=== PATIENT | female | born 1970 | race Two or more races ===

== ENCOUNTER 2020-07-22 10:40 | Outpatient (REF) | payer MEDICAID, SELFPAY | END 2020-07-22 10:41 | disposition home or self-care (01) | LOC: HO.SCI 10:40 | PROVIDERS: Visit Provider Nurse Practitioner | DX: Z13.89 Encounter for screening for other disorder (principal) ==

== ENCOUNTER 2023-06-17 10:31 | Outpatient (AMB) | payer MEDICAID, SELFPAY ==
--- NOTE | 2023-06-17 07:54 | MHC.OFFVIS ---
Intake Visit Reasons: Current Smoker HPI HPI Current Smoker: Details: Initial visit for this 53yo smoker with a 20PYH. Patient has been smoking since age 20 for 34 years at 1/2-3/4ppd. Currently down to 1/4ppd. . Denies marijuana use. Denies second hand smoke exposure. Denies exposure to chemicals or substances like asbestos. . Denies known family history of lung cancer. Denies personal history of cancers. Denies chest CT in last year. . Denies recent travel outside the [place]. Denies recent respiratory illness or recent hospitalization for respiratory issues. Denies testing positive for COVID. Denies receiving COVID Vaccine. . Denies fever, chills, new/worsening cough, hemoptysis, hoarseness or dysphagia. Denies significant chest pain, significant dyspnea or unintentional weight loss. Patient Lung Cancer Screening Questionnaire reviewed with patient by provider. . Shared Decision Making Completed. Patient meets criteria. Discussed in detail with patient, the risk vs benefit of LDCT screening. Patient consents to proceed with scan. Discussed smoking cessation. [facility] Medical History (Updated 06/17/23 @ 10:51 by Anuja Castillo PA-C) Asthma Hypertension Seasonal allergies Nicotine dependence, cigarettes, uncomplicated Surgical History (Updated 06/17/23 @ 10:52 by Anuja Castillo PA-C) History of appendectomy History of Social History (Updated 06/17/23 @ 10:52 by Anuja Castillo PA-C) Patient Tobacco Use Status: Current everyday Tobacco user Cigarettes Per Day: 4 Years Smoked: (onset 20yo, 1/2-3/4ppd x 33yrs, now 1/4ppd - 20pyh) Assessment & Plan Assessment & Plan (1) Nicotine dependence, cigarettes, uncomplicated: Comment: (current smoker - onset 20yo - x 33yrs, 1/2-3/4ppd, now 1/4ppd - 20pyh ) Code(s): F17.210 - Nicotine dependence, cigarettes, uncomplicated Category: Medical Plan: - SDM visit completed today in office. - Patient meets criteria for LDCT for lung cancer screening purposes and is asymptomatic. - Smoking cessation counseling offered. Patients can always call [phone]. - Will arrange for a LDCT scan of the chest for screening purposes at [facility]. - Risks, benefits, and alternatives were discussed in detail and the patient agrees to proceed. - Risks discussed include but are not limited to: radiation exposure, anxiety during testing and while awaiting results, false negatives, false positives and possibility of additional intervention such as further imaging or surgical procedures for benign disease. - Benefits are obviously detection of lung cancer at an early stage which can lead to improved outcomes. - Discussed the importance of screening program compliance with adherence to yearly LDCT scan as scheduled - or sooner interval scans for personalized screening regimen. - Discussed follow up plan. Our office will send a letter discussing results and if needed set up phone call and office visit based on CT findings. - Patient educated on results categorization and the management decisions for suspicious findings potentially found on the screening LDCT scan. Any patient with a Lung RADS score of 3 or 4 will be reviewed by a multidisciplinary team at [facility] to form a plan of action in regards to scan findings. - If further work up is warranted for a suspicious lung finding this will be followed by the Lung Cancer Screening program in conjunction with the Thoracic Surgery Department at [facility]. - A copy of the office note and LDCT will be sent to the patient's PCP - as well as documentation on any associated further plans of care. - Incidental findings on LDCT are the PCP's responsibility. These findings are indicated with an S finding on the LDCT Assessment. A note discussing the findings will be sent to the PCP who is then responsible for further management. - All questions answered.? Coding Level of Care Code Lung Cancer Screening G0296 Diagnoses Nicotine dependence, cigarettes, uncomplicated F17.210
== END 2023-06-17 10:58 | disposition home or self-care (01) ==
PROVIDERS: PCP Student in an Organized Health Care Education/Training Program; Referring Provider Student in an Organized Health Care Education/Training Program; Visit Provider Physician Assistant Medical
DX: F17.210 Nicotine dependence, cigarettes, uncomplicated (principal)
CPT/HCPCS: G0296

== ENCOUNTER 2023-06-17 10:50 | Outpatient (REF) | payer MEDICAID, SELFPAY ==
--- NOTE | ~2023-06-17 | CT_ITS ---
EXAMINATION: CT CHEST SCREENING CLINICAL INFORMATION: Nicotine dependence, cigarettes, uncomplicated. The patient is a current smoker with a 34 pack-year history of smoking. COMPARISON: None available. TECHNIQUE: Multidetector volumetric CT imaging of the chest is performed on a Siemens SOMATOM Definition scanner without contrast using low dose technique. Additional 2D coronal and sagittal reformatted images and axial 3D maximum intensity projection (MIP) images are generated on the CT workstation. This CT examination was performed using dose optimization techniques as appropriate, variously including the following: *Automated exposure control *Adjustment of mA and/or kV according to patient size (this includes techniques or standardized protocols for targeted exams where dose is matched to indication/reason for exam; i.e. extremities or head) *Use of iterative reconstruction technique DLP: 61 mGy-cm FINDINGS: Pulmonary nodules: There is a 3 mm subpleural left upper lobe nodule (5:115). There is a 2 mm subpleural right upper lobe nodule laterally (5:202). Punctate calcified granuloma in the right lateral costophrenic angle. LUNGS: There are mild emphysematous changes along with bronchial thickening. No consolidations. MEDIASTINUM: The mediastinum is normal. CORONARY ARTERY CALCIFICATION: None visualized on this study. PLEURA: There is no pleural effusion. No pleural mass or thickening. AXILLA: No lymphadenopathy. UPPER ABDOMEN: Unremarkable OSSEOUS STRUCTURES: Unremarkable. CT/CT lung screening IMPRESSION: A few benign-appearing pulmonary nodules without evidence of malignancy. ASSESSMENT: Lung-RADS category 2: Benign RECOMMENDATION: Routine annual low-dose CT screening in 12 months.
== END 2023-06-17 10:51 | disposition home or self-care (01) ==
LOC: HO.CT 10:50
PROVIDERS: PCP Student in an Organized Health Care Education/Training Program; Visit Provider Physician Assistant Medical
DX: Z12.2 Encounter for screening for malignant neoplasm of respiratory organs (principal); F17.210 Nicotine dependence, cigarettes, uncomplicated
CPT/HCPCS: 71271; G0296

== ENCOUNTER 2023-07-19 15:55 | Outpatient (REF) | payer MEDICAID, SELFPAY ==
[2023-07-29 08:48] LABS: HPV mRNA E6/E7 rflx Not Detected (Not Detected)
[2023-07-30 10:54] LABS: C. trachomatis RNA TMA NOT DETECTED (NOT DETECTED); N. gonorrhoeae RNA TMA NOT DETECTED (NOT DETECTED)
[2023-07-30 12:28] LABS: Trichomonas (NAAT) NOT DETECTED (NOT DETECTED)
== END 2023-07-19 15:56 | disposition home or self-care (01) ==
LOC: HO.HHCLNP 15:55
PROVIDERS: Visit Provider Advanced Practice Midwife
DX: Z12.4 Encounter for screening for malignant neoplasm of cervix (principal); Z11.3 Encounter for screening for infections with a predominantly sexual mode of transmission
CPT/HCPCS: 87491; 87591; 87624; 87661; 88142

== ENCOUNTER 2023-12-07 10:42 | Outpatient (REF) | payer MEDICAID, SELFPAY ==
--- NOTE | ~2023-12-07 | XR_ITS ---
EXAMINATION: XR KNEE, RIGHT CLINICAL INFORMATION: Right knee pain COMPARISON: None available. TECHNIQUE: AP and lateral views of the right knee. FINDINGS: No acute fracture or dislocation seen. Fibular head is intact. There is minimal lateral chondrocalcinosis. No significant joint effusion seen. Superior patellar spurring noted. XR/XR knee RT 2V IMPRESSION: No evidence for acute process. Degenerative changes. Electronically signed by: Naga Hurley MD 12/07/2023 04:20 PM EDT
== END 2023-12-07 10:43 | disposition home or self-care (01) ==
LOC: HO.HHCX 10:42
PROVIDERS: Visit Provider Student in an Organized Health Care Education/Training Program
DX: M25.561 Pain in right knee (principal); G89.29 Other chronic pain
CPT/HCPCS: 73560

== ENCOUNTER 2023-12-07 11:28 | Outpatient (REF) | payer MEDICAID, SELFPAY ==
[2023-12-07 13:46] LABS: Estimated Average Glucose 111 mg/dL; Hemoglobin A1C 126.0457 umol/L; Hemoglobin A1c % 5.5 % (<6.0); Total Hemoglobin (HGBA1C) 3470.1805 umol/L
[2023-12-07 13:50] LABS: Alanine Aminotransferase 21 U/L (0-31); Alkaline Phosphatase 77 U/L (39-117); Aspartate Amino Transferase 23 U/L (5-31); Bilirubin Direct 0.1 mg/dL (0.0-0.5); Bilirubin Total 0.3 mg/dL (0.0-1.0); Cholesterol 199 mg/dL (<200); Total Protein 6.9 g/dL (6.5-8.0)
[2023-12-07 14:06] LABS: Thyroid Stimulating Hormone 1.91 uIU/mL (0.32-4.0)
== END 2023-12-07 11:29 | disposition home or self-care (01) ==
LOC: HO.HHCL 11:28
PROVIDERS: Visit Provider Counselor
DX: Z13.89 Encounter for screening for other disorder (principal)
CPT/HCPCS: 36415; 80076; 82465; 83036; 84443

== ENCOUNTER 2024-05-21 08:33 | Outpatient (AMB) | payer MEDICAID, SELFPAY ==
--- NOTE | 2024-05-21 08:35 | A.OFFVIS_ITS ---
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 International Student Counselor Required: Yes International Student Counselor Services: International Student Counselor Present International Student Counselor Name: Suha [phone] Accompanied by: Self / Same As Patient Allergies No Known Allergies Allergy (Verified 05/21/24 08:39) Medication List - Last Reconciled 05/21/24 by Terrell Cherry MD budesonide-formoterol 160-4.5 mcg/actuation (Symbicort) 1 inh inhalation BID lisinopril-hydrochlorothiazide 10-12.5 mg 1 tab PO DAILY quetiapine 50 mg PO BEDTIME sertraline 200 mg PO DAILY HPI Comments Details: This is a cardiology consultation regarding an abnormal EKG. Patient herself does not have any clear-cut cardiac history including any coronary disease or myocardial infarction or cardiomyopathy or anything along those lines. She states that she gets random chest pains in no specific patterns. Can get with and without exertion. She gets short of breath with activity and describes nonspecific fatigue/tiredness. She has hypertension medications. Chronic smok er. History of remote drug use including cocaine use. Recent EKG was thought to be abnormal and hence she has been referred here for further evaluation. [facility] Medical History (Updated 05/21/24 @ 08:54 by Terrell Cherry MD) Asthma Hypertension Seasonal allergies Nicotine dependence, cigarettes, uncomplicated Surgical History History of appendectomy History of Family History (Updated 05/21/24 @ 08:42 by Lucy Montes CMA) Mother DM2 (diabetes mellitus, type 2) HTN (hypertension) Social History (Updated 05/21/24 @ 08:42 by Lucy Montes CMA) Alcohol intake: never Patient Tobacco Use Status: Current everyday Tobacco user Cigarettes Per Day: 4 Years Smoked: (onset 20yo, 1/2-3/4ppd x 33yrs, now 1/4ppd - 20pyh) Review of Systems Const Denies chills, Denies daytime sleepiness, Denies fatigue, Denies fever(s), Denies poor appetite, Denies snoring, Denies stops breathing during sleep, Denies weakness, Denies weight gain and Denies weight loss Eyes Denies loss of vision ENT Denies dizziness and Denies hearing loss Card Reports chest pain, Reports irregular heart rhythm, Denies claudication, Denies leg edema, Denies lightheadedness, Denies palpitations, Reports dyspnea on exertion and Denies orthopnea Resp Denies cough, Denies excessive phlegm production, Reports dyspnea on exertion, Denies snoring and Denies wheezing GI Denies abdominal pain, Denies hematochezia, Denies change in bowel habits, Denies nausea and Denies vomiting Denies urinary frequency and Denies dysuria Musc Denies arthralgias, Denies muscle weakness, Denies numbness and Denies other Skin/Breast Denies nail changes and Denies rash Neuro Denies Abnormal speech present, Denies dizziness, Denies loss of vision, Denies memory loss, Denies numbness and Denies weakness Psych Denies depression and Denies memory loss Endo Denies fatigue and Denies palpitations Tyler/Lymph Denies easy bruising Aller/Immun Denies wheezing Physical Exam Vital Signs: Last Vital Signs Pulse 62 05/21/24 08:38 BP 130/90 H 05/21/24 08:38 BMI result Body Mass Index 32.5 Const General: comfortable and no acute distress Orientation/consciousness: patient oriented x3 HEENT Other: Unremarkable Head: Yes normal to inspection Neck Neck: Yes normal visual inspection Chest Chest palpation & inspection: normal inspection of the chest Resp Auscultation: clear to auscultation bilaterally Cardio Palpation: normal PMI Heart sounds: S1 normal heart sound present, S2 normal heart sound present, no gallops, no murmurs and no rubs GI Palpation (GI): Soft to palpation Back/Spine/Pelvis Other: unremarkable Skin General skin exam: no rashes or lesions noted Neuro General: patient oriented x3 Speech: No Abnormal speech present Extrem General: Yes normal to inspection Psych Mental Status: mental status grossly normal Office Procedures EKG Details: EKG with underlying sinus rhythm at 62/Min; nonspecific ST-T changes; [place] [id number], Complete Assessment & Plan Assessment & Plan (1) Precordial chest pain: Code(s): R07.2 - Precordial pain Category: Medical (2) Abnormal EKG: Code(s): R94.31 - Abnormal electrocardiogram [ECG] [EKG] Category: Medical (3) Essential hypertension: Code(s): I10 - Essential (primary) hypertension Category: Medical (4) Smoker: Code(s): F17.200 - Nicotine dependence, unspecified, uncomplicated Category: Social Hx Plan EKG shows nonspecific ST-T changes. Atypical sounding chest pain. However, with risk factors. We will get an echocardiogram/stress test for further evaluation. Follow-up after the above. Discussed with patient regarding this plan and she is willing to proceed. She will call us with any ongoing concerns. Orders: Orders CA echo transthoracic complete Today R07.2 - Precordial pain CA echo stress exercise Today R07.2 - Precordial pain Coding Level of Care Code New Pt Level 4 (54541) Complex EM visit Add On G2211 Diagnoses Precordial chest pain R07.2 Abnormal EKG R94.31 Essential hypertension I10 Smoker F17.200 CPT Codes EKG - CPT: 33992-[id number], Complete ([id number])
[2024-05-21 08:38] VITALS: BP 130/90; PULSE 62; BMI 32.5
--- OUTSIDE RECORDS SUMMARY | 2024-05-21 09:04 | XMS_ITS | Encounter Summary ---
Author Organization [employer] Address [address] [facility] [place] [address] Care Team Providers Care Labour Market Economist Name Role Phone Liliana Narayanan MD Primary Care Pro vider Isac Gaytan Unavailable Unavailable Reason for Visit * Reason Onset Date Comments Appointment Request 06/16/2023 Encounter Details Date Type Department Care Team (Late st Contact Info) Description 06/16/2023 Telephone [facility] [address], [place] [phone] Liliana Narayanan MD [address] [place], [place] [phone] Appointment Request Social History Tobacco Use Types Packs/Day Years Used Date Smoking Tobacco: Some Days Cigarettes Smokeless Tobacco: Never Comments:Started smoking 16 y of age until now ,stopped for 2 years but again smoking. Smokes aprox 4 cig a day states used to smoke 60 cig a day which did for 10 years .PQT sita a year 36 Alcohol Use Standard Drinks/Week Comments Not Currently 0 (1 standard drink = 0.6 oz pure alcohol) h xof ETOH abuse not currently -stopped 20 y ago Depression Answer Date Recorded Patient Health Questionnaire-9 Score 27 04/26/2023 Patient Health Questionnaire-9 Score 27 04/26/2023 Last PHQ-9: Questionnaire Data Not on file 0 04/26/2023 Housing Stability Answer Date Recorded What is your housing situation today? I do not have housing (Staying with others, in a hotel, in a senior living, living outside on the street, on a beach, in a car, or in a park 11/21/[address] you li ve. Do you have problems with any of the following? None of the above 11/21/2022 Food Insecurity Answer Date Recorded Within the past 12 months, y ou worried that your food would run out before you got money to buy more: Often true 12/06/2022 Within the past 12 months,th e food you bought just didn't last and you didn't have enough money to get more: Often true Transportation Answer Date Recorded In the past 12 months, has l ack of transportation kept you from medical appts, meetings, work or from getting things needed for daily living? Yes, it has kept me from medical appointments or getting medications. 11/21/2022 Utilities Answer Date Recorded In the past 12 months, has t he electric, gas, oil or water company threatened to shut off services in your home? Yes 11/21/2022 Depression Answer Date Recorded Patient Health Questionnaire-2 Score 6 04/26/2023 Comments Unknown Sex and Gender Information Value Date Recorded Sex Assigned at Female 12/14/2021 10:38 AM EDT Legal Sex Female 10:38 AM EDT Gender Identity Female 12/14/2021 10:38 AM EDT Sexual Orientation Straight 12/14/2021 10 :38 AM EDT documented as of this encounter Miscellaneous Notes * Telephone Encounter - Michel Stauffer - 06/16/2023 8:30 AM EDT Tc from patient calling to reschedule PAP appt from 06/08 documented in this encounter Plan of Treatment Upcoming Encounters Date Type Department Care Team (Late st Contact Info) Description 05/25/2024 11:15 AM EDT Office Visit [facility] [address] [place] [phone] Liliana Narayanan MD [address] [place] [phone] 07/19/2024 1:45 PM EDT Office Visit [facility] [address] [place] [phone] Judith Ingram CNM [address] [place] [phone] documented as of this encounter Visit Diagnoses Not on filedocumented in this encounter Additional Health Concerns Assessment Noted Time PHQ-9 Depression Total Score: 27 024 10:20 AM EDT documented as of this encounter Care Teams Labour Market Economist Relationship Specialty Start Date End Date Liliana Narayanan MD [address] [place], [place] [phone] PCP - General Internal Medicine 11/04/22 Isac Gaytan FNP [address] [place] [address] Nurse Practitioner Family Medicine 01/05/23 documented as of this encounter
--- OUTSIDE RECORDS SUMMARY | 2024-05-21 09:04 | XMS_ITS | Encounter Summary ---
Author Organization [employer] Address [address] [facility] [address] [place] [address] Care Team Providers Care Sales Lead Generator Name Role Phone Liliana Narayanan MD Primary Care Pro vider Isac Gaytan Unavailable Unavailable Reason for Visit * Reason Onset Date Comments chart prep 05/17/2024 Encounter Details Date Type Department Care Team (Late st Contact Info) Description 05/17/2024 Telephone [facility] [address] [place], [place] [phone] Liliana Narayanan MD [address] [place], [place] [phone] chart prep Social History Tobacco Use Types Packs/Day Years [...] What is your housing situation today? I have meir morataya 06/24/[address] you li ve. Do you have problems with any of the following? None of the above 06/24/2023 Food Insecurity Answer Date Recorded Within the past 12 months, y ou worried that your food would run out before you got money to buy more: Often true 05/14/2024 Within the past 12 months,th e food you bought just didn't last and you didn't have enough money to get more: Often true Transportation Answer Date Recorded In the past 12 months, has l ack of transportation kept you from medical appts, meetings, work or from getting things needed for daily living? Yes, it has kept me from medical appointments or getting medications. 05/14/2024 Utilities Answer Date Recorded In the past 12 months, has t he [employer], gas, oil or water company threatened to shut off services in your home? No 06/24/2023 Depression Answer Date Recorded Patient Health Questionnaire-2 Score 6 04/26/2023 Internet Access Answer Date Recorded Internet Access Q1 Yes 05/14/2024 Internet Access Q2 Not on file 05/14/2024 Comments Unknown Sex and Gender Information Value Date Recorded Sex Assigned at Female 12/14/2021 10:38 AM EDT Legal Sex Female 10:38 AM EDT Gender Identity Female 12/14/2021 10:38 AM EDT Sexual Orientation Straight 12/14/2021 10 :38 AM EDT documented as of this encounter Miscellaneous Notes * Telephone Encounter - Negrita Diggs MA - 05/17/2024 3:42 PM EDT Chart Prep Labs: done Images: done Vaccines due: Covid Due, Hep B Due, Flu Due, and Shingles in pharmacy Due Referrals: Completed Screenings: Colonoscopy and Mammogram Overdue care gaps: Sbirt, PQ9, GAD7, Disability , and Oral Health documented in this encounter Plan of Treatment Upcoming Encounters Date Type Department Care Team (Late st Contact Info) Description 05/25/2024 11:15 AM EDT Office Visit [facility] [address] [place] [phone] Liliana Narayanan MD [address] [place] [phone] 07/19/2024 1:45 PM EDT Office Visit [facility] [address] [place] [address] Judith Ingram CNM [address] [place], [place] [phone] documented as of this encounter Visit Diagnoses Not on filedocumented in this encounter Additional Health Concerns Assessment Noted Time PHQ-9 Depression Total Score: 27 024 10:20 AM EDT documented as of this encounter Care Teams Sales Lead Generator Relationship Specialty Start Date End Date Liliana Narayanan MD [address] [place] [address] PCP - General Internal Medicine 11/04/22 Isac Gaytan FNP [address] [place] [phone] Nurse Practitioner Family Medicine 01/05/23 documented as of this encounter
--- OUTSIDE RECORDS SUMMARY | 2024-05-21 09:04 | XMS_ITS | Clinical Summary ---
Author Organization [employer] Address [address] [facility] 7t [place] [address] Care Team Providers Care Director Digital Analytics Name Role Phone Liliana Narayanan MD Primary Care Pro vider Isac Gaytan Unavailable Unavailable Allergies Active Allergy Reactions Criticality Noted Date Comments Gramineae Pollens Runny nose 09/10/2022 Medications * This document contains information received from the source organization and may not represent a complete record from that organization. cetirizine (ZyrTEC) 10 MG chewable tablet Chew 1 tablet at bed time. 2 Active cyclobenzaprine (Flexeril) 5 MG tablet take 1 tablet by oral route 2 times daily as needed for muscle pain or spasm 2 Active albuterol (2.5 MG/3ML) 0.083% nebulizer solutionIndicat ions:Moderate persistent asthma, unspecified whether complicated Take 3 mL by nebulization every 8 (eight) hours if needed for wheezing. 75 mL 3 Active budesonide-form oterol (Symbicort) 80-4.5 MCG/ACT inhalerIndicati ons:Moderate persistent asthma, unspecified whether complicated Inhale 2 puffs in the morning and at bedtime. Rinse mouth with water after use to reduce aftertaste and incidence of candidiasis. Do not swallow. 1 each 5 4 Active sertraline (Zoloft) 100 MG tabletIndicatio ns:Severe recurrent major depression with psychotic features (CMS/HCC) Take 1 tablet (100 mg) by mouth in the morning. 90 tablet 4 Active albuterol 108 (90 Base) MCG/ACT inhaler Inhale 2 puffs every 4 (four) hours. 18 g 3 4 Active Diclofenac Sodium 1 % gel Apply 1 Application topically if needed each day (pain knee). 50 g 4 Active nicotine (Nicoderm CQ) 7 MG/24HR patch Place 1 patch on the skin 1 (one) time each day at the same time. 42 patch 4 Active nicotine polacrilex (Nicotine Mini) 2 MG lozenge Dissolve 1 lozenge (2 mg) in the mouth if needed for smoking cessation. 100 lozenge 4 Active QUEtiapine XR (SEROquel XR) 300 MG 24 hr tablet TAKE 1 TABLET BY MOUTH EVERYDAY AT BEDTIME 30 tablet 4 Active Gas Relief Extra Strength 125 MG chewable tablet CHEW 1 TABLET (125 MG) EVERY 6 (SIX) HOURS IF NEEDED FOR FLATULENCE FOR UP TO 10 DAYS. 30 tablet 4 Active lisinopril-hydr oCHLOROthiazide 10-12.5 MG tablet TAKE 1 TABLET BY MOUTH EVERY DAY 90 tablet 5 Active Active Problems Problem Noted Date Diagnosed Date Chronic pain of right knee 06/24/2023 Bloated abdomen 06/24/2023 Abnormal EKG 06/24/2023 Severe anxiety 04/26/2023 Obesity 04/26/2023 Tobacco use 04/26/2023 Hypertension 09/10/2022 Assessment & Plan (09/10/2022 10:17 AM EDT): Patient not taking medication as prescribed. We discussed that she needs to take her medication as prescribed. That her medication is more than likely not impacting her menstrual cycle. She understood. Patient reports having BP cuff at home. She is to log her BP twice a day and return in two weeks for a bp check. BP 132/86 before leaving. Routine adult health maintenance 06/29/2022 Assessment & Plan (09/10/2022 12:46 PM EDT): Due to time constraints I was unable to complete her TP visit. I will continue the visit at her HTN f/up in two week. PHQ: 4 Substance use: Cigarettes = 3 a week. Denies etoh. Marijuana = none now. Lipids: labs ordered Mammo: reports 6 years ago. Colonoscopy: referral to GI sent. Says she was sent by previous PCP but never went. Eye exam: referral sent Dental home: Severe recurrent major depression with psychotic features 01/26/2022 Assessment & Plan (04/26/2023 1:03 PM EDT): PROGRESS NOTE: ID: Sidney is a 52 y.o. White straight-identified cis-female (pronouns she/her/hers) with previous documented hx of Depression, services including OP Psychotherapy and psychopharmacology; who presents for Anxiety, Depression, and Hallucinations. During IBH Consult Sidney presenting with depressed mood, loss of interests/pleasure , changes in sleep difficulty falling asleep and difficulty staying asleep , change in appetite or weight reduce appetite, overeating, and ptn reported her appetite varies per day, psychomotor agitation, psychomotor retardation, trouble concentrating, fatigue/loss of energy, worthlessness , passive suicidal ideation w/o plan, hallucinations, excessive worry/anxiety, difficulty controlling worry, restless/keyed up/On edge, easily fatigued, difficulty concentrating/Mind going blank , irritability, muscle tension, and sleep disturbance difficulty falling asleep, difficulty staying asleep , and restless, unsatisfying sleep, and patient reported using cocaine on social occasions, denies cravings, denies dependence at this time; for a period of 18+ mo, for all symptoms in the context of ptn reported was living closed in her daughter baseman for 2 years without going outside, stress relationship with daughter, lack of support, and isolation. PLAN: New/Additional Services needed Off-site services for ( Psychiatrist) Continue with current services (defined as services in the past 12 months) therapist at [facility] Behavioral Health Integration Plan External OP psychiatry Referral Patient Self Plan Patient to utilize skills provided in intervention , [facility], Comply with medication soloft 100mg and seroquel 100mg , Patient to reach out to [facility] as needed, and Patient to follow-up with external team. Assessment & Plan (01/13/2023 11:11 AM EST): with history of mutliple traumas, beginning in childhood. Presented with auditory and visual hallucinations, self-harm and suicidal ideation. Hx cutting. Pt reported no prior BH treatment (?true). Again doing well. Continue Quetiapine 100 mg at bedtime, Sertraline 100 mg. F/U with therapist as usual. On 11/09/2022 provider informed the patient that I would be retiring within a year or so, and suggested she discuss with her therapist whether she could be referred to agency psychiatric prescriber F/U with me in 2 months. She agrees with the plan. Assessment & Plan (11/09/2022 2:11 PM EDT): with history of mutliple traumas, beginning in childhood. Presented with auditory and visual hallucinations, self-harm and suicidal ideation. Hx cutting. Pt reported no prior BH treatment (?true). Again doing better despite challenging circumstances of imminent housing insecurity. Will continue Quetiapine 100 mg at bedtime, Sertraline 100 mg. F/U with therapist as usual. Today 11/09/2022 provider informed the patient that I would be retiring within a year or so, and suggested she discuss with her therapist whether she could be referred to agency psychiatric prescriber F/U with me in 6 weeks. She agrees with the plan. Assessment & Plan (09/28/2022 2:18 PM EDT): with history of mutliple traumas, beginning in childhood. Presented with auditory and visual hallucinations, self-harm and suicidal ideation. Hx cutting. Pt reported no prior BH treatment (?true). Had improved significantly, but today reports poor sleep and worsened depression. Requests resumption of prior Quetiapine. Therefore will stop Risperidone 1 mg 1.5 tabs at bedtime. Will start Quetiapine 100 mg at bedtime. Continue Sertraline 100 mg. F/U with therapist as usual. F/U with me in 6 weeks. She agrees with the plan. Assessment & Plan (07/27/2022 2:10 PM EDT): with history of mutliple traumas, beginning in childhood. Presented with auditory and visual hallucinations, self-harm and suicidal ideation. Hx cutting. Pt reported no prior BH treatment (?true). Markedly improved! Mood and hallucinations controlled, sleeping well. Will continue Risperidone 1 mg to take 1.5 tabs at bedtime. Continue Sertraline 100 mg. F/U with therapist as usual. F/U with me in 2 months. She agrees with the plan. Assessment & Plan (06/08/2022 1:19 PM EDT): with history of mutliple traumas, beginning in childhood. Presented with auditory and visual hallucinations, self-harm and suicidal ideation. Hx cutting. Pt reported no prior BH treatment (?true). Mood and hallucinations improved, and feels meds are working well despite significant social stressors. Will continue Risperidone 1 mg to take 1.5 tabs at bedtime. Continue Sertraline 100 mg. F/U with therapist as usual. F/U with me in 6 weeks. She agrees with the plan. Assessment & Plan (05/10/2022 2:18 PM EDT): with history of mutliple traumas, beginning in childhood. Presented with auditory and visual hallucinations, self-harm and suicidal ideation. Hx cutting. Pt reported no prior BH treatment (?true). Tolerating new Risperidone but auditory and visual hallucinations persist. Will now increase to Risperidone 1 mg to take 1.5 tabs at bedtime. Continue Sertraline 100 mg. F/U with therapist as usual. F/U with me in 1 month. She agrees with the plan. Assessment & Plan (04/12/2022 2:21 PM EST): with history of mutliple traumas, beginning in childhood. Presented with auditory and visual hallucinations, self-harm and suicidal ideation. Hx cutting. Pt reported no prior BH treatment (?true). Not sleeping well, recurrence of auditory and visual hallucinations (voices, shadows). Difficulty awakening in the morning. Rather than increasing Seroquel and likely worsening the daytime somnolence, she will stop the Seroquel 150 mg. She will start Risperidone 1 mg at bedtime. Continue Sertraline 100 mg. F/U with therapist as usual. F/U with me in 1 month. She agrees with the plan. Assessment & Plan (03/09/2022 1:32 PM EST): with history of mutliple traumas, beginning in childhood. Presented with auditory and visual hallucinations, self-harm and suicidal ideation. Hx cutting. Pt reported no prior BH treatment (?true). Despite current difficulties (homeless since daughter threw her out, living in a motel) sh is actually doing OK emotionally. Has been out of medications and not sleeping well. New Rx's will be sent now. F/U with therapist as usual. F/U with me in 4-6 weeks. She agrees with the plan. Assessment & Plan (01/26/2022 4:11 PM EST): with history of mutliple traumas, beginning in childhood. Presented with auditory and visual hallucinations, self-harm and suicidal ideation. Hx cutting. Pt reported no prior BH treatment (?true). Despite current difficulties (homeless since daughter threw her out, living in a motel) sh is actually doing OK emotionally without hallucinations. Will continue current plan. F/U with therapist as usual. Also referring for housing assistance. F/U with me in 6 weeks. She agrees with the plan. Moderate persistent asthma 07/19/2020 Assessment & Plan (09/10/2022 10:17 AM EDT): ACT = 12 Using rescue inhaler twice a day. Asthma is not well controlled, adding Symbicort to regimen. Will f/up in 2 weeks for ACT, if not improving will refer to pulmonology. Seasonal allergies 07/19/2020 Resolved Problems Problem Noted Date Diagnosed Date Resolved Date Cocaine use, unspecified, uncomplicated 04/26/2023 04/26/2023 Housing insecurity 11/09/2022 Assessment & Plan (11/09/2022 2:11 PM EDT): Will refer for SDOH Supports Encounters Date Type Department Care Team Description 05/17/2024 Telephone [facility] [address] [place] [phone] Liliana Narayanan MD chart prep 05/14/2024 Patient Outreach [facility] [address] [place] [phone] Caroline, Gómez Care Coordination (CHW outreach for SDOH PT-1 and food needs-referral completed /) 05/14/2024 Patient Outreach [facility] [address] [place] [address] Liliana Narayanan MD Pre-visit Planning (SDOH Screening positive and Tobacco screening positive) 04/27/2024 Population Health Risk Score [facility] () Department [address] [place] [phone] Provider, Population Health Generic 04/04/2024 Refill [facility] [address] [place] [address] Liliana Narayanan MD 04/03/2024 Telephone [facility] [address] [place] [address] Liliana Narayanan MD May recall from Last 3 Months Immunizations Name Administration Dates Next Due Pfizer Covid-19 Vaccine 12+ 06/24/2023 Pneumococcal Conjugate PCV 20 04/26/2023 Tdap 06/24/2023 Family History Medical History Relation Name Comments DM2 Mother Relation Name Status Comments Mother Social History Tobacco Use Types Packs/Day Years Used Date Smoking Tobacco: Some Days Cigarettes Smokeless Tobacco: Never Tobacco Cessation:Ready to Q uit: Not Asked; Counseling Given: Not Answered Comments:Started smoking 16 y of age until [...] Orientation Straight 12/14/2021 10 :38 AM EDT Last Filed Vital Signs Vital Sign Reading Time Taken Comments Blood Pressure 138/95 09/27/2023 11:53 AM EDT Pulse 68 09/27/2023 11:53 AM EDT Temperature 36.6 ??C (97.8 ??F) 09/27/2023 11:53 AM E DT Respiratory Rate 20 09/27/2023 11:53 AM EDT Oxygen Saturation 98% 09/27/2023 11:53 AM EDT Inhaled Oxygen Concentration - - Weight 81.7 kg (180 lb 3.2 oz) 09/27/2023 11:53 AM EDT Height 160 cm (5' 3 ) 09/27/2023 11:53 AM EDT Body Mass Index 31.92 09/27/2023 11:53 AM EDT Plan of Treatment Upcoming Encounters Date Type Department Care Team (Late st Contact Info) Description 05/25/2024 11:15 AM EDT Office Visit [facility] [address] [place] [phone] Liliana Narayanan MD [address] [place] [address] 07/19/2024 1:45 PM EDT Office Visit [facility] [address] [place], [place] [phone] Judith Villalba, ROSELINE [address] [place], [place] [phone] Health Maintenance Due Date Last Done Comments CT Colonography 1972 Colonoscopy 1972 Colorectal Cancer Screening 1972 FIT DNA/Cologuard 1972 FIT 1972 FOBT 1972 HIV Screening 1972 Lipid Panel 1972 Sigmoidoscopy 1972 Alcohol/Substance Use Screening 1984 Family Planning (PISQ) 05/04/1987 Hepatitis C Screening 1990 Hepatitis B Vaccines (1 of 3 - 19+ 3-dose series) 05/04/1991 Mammogram 2012 Zoster Vaccines (1 of 2) 2022 COVID-19 Vaccine (2 - 2023-2 5 season) 2023 06/24/2023 Influenza Vaccine (#1) 2023 Depression Monitoring (PHQ-9) 10/27/2023, 04/26/2023 Depression Screening 04/25/2024 04/26/2023, 04/26/2023 Tobacco Screening 09/26/2024 09/27/2023 SDOH Screening 05/14/2025 05/14/2024 Cervical Cancer Screening 07/18/2028 HPV/Cotest 07/18/2028 07/19/2023 Pap Smear 07/18/2028 07/19/2023 DTaP/Tdap/Td Vaccines (2 - T d or Tdap) 06/23/2033 06/24/2023 RSV Patients and Patients Aged 60 years or older (1 - 1-dose 75+ series) 05/04/2047 Pneumococcal Vaccine: 50+ Years Completed 04/26/2023 HIB Vaccines Aged Out No longer eligi ble based on patient's age to complete this topic HPV Vaccines Aged Out No longer eligi ble based on patient's age to complete this topic Hepatitis A Vaccines Aged Out No long er eligible based on patient's age to complete this topic IPV Vaccines Aged Out No longer eligi ble based on patient's age to complete this topic Meningococcal Vaccine Aged Out No lance bibi eligible based on patient's age to complete this topic RSV under 20 months Aged Out No longe r eligible based on patient's age to complete this topic Rotavirus Vaccines Aged Out No longer eligible based on patient's age to complete this topic Procedures Procedure Name Priority Date/Time Associated Diagnosis Comments HPV MRNA E6/E7 REFLEX TO HPV 16, 18/45 Routine 07/19/2023 10:58 AM EDT PAP SMEAR Routine 07/19/2023 10:58 AM EDT from Last 3 Months or Most Recently Relevant to Health Maintenance Results * HPV mRNA E6/E7 w/Reflex to HPV Genotypes 16, 18/45 (07/19/2023 10:58 AM EDT) HPV nRNA E6/E7 Not Detected Not Detected [facility] Comment:Methodology: Transcr iption-Mediated AmplificationThis assay detects E6/E7 viral messenger RNA (mRNA) from 14high-risk HPV types (16,18,31,33,35,39,45,51,52,56,58,59,66,68).Cervical sources are required for HPV testing.If a vaginal source from a patient who has had atotal hysterectomy with removal of cervix wassubmitted, please contact the testing laboratoryfor alternative testing options.For additional information, please refer [email or web address]/[email or web address](This link if provided for information/educational purposes only.)THIS TEST WAS PERFORMED AT:[facility] [place] [phone] REYES MD HPV mRNA E6/E7 [facility] HPV 16 RNA [facility] HPV 18/45 RNA [facility] 07/19/2023 10:5 8 AM EDT 07/27/2023 11:42 AM EDT Judith THURMAN LAB CYTOLOGY ORDERABLES F inal Result [facility] [address] [place] [address] [phone] * Pap Smear (07/19/2023 10:58 AM EDT) 07/19/2023 10:5 8 AM EDT 07/20/2023 9:15 AM EDT Jesusita [facility] - 08/14/2023 3:42 PM EDT ----- ------- Name: Sidney Bellamy ? Age/Sex: 53/F ? : 1970 Unit#: [id number] ?? Attend Dr: JUDITH VILLALBA CNM ?Re07/19/23 ?Status: DEP REF ? Location: HO.HHCLNP ? Disch: ? ----- ------- SPEC : [id number] ?RECD: 07/20/23-914 ? STATUS: ??SOUT ? REQ NUM: [id number] ? KASIA: 07/19/23 ? SUBM DR: JUDITH VILLALBA CNM ? ENTERED: ??07/20/23 ?SP TYPE: Pap Smr ?OTHR : ? ORDERED: ??Pap Smear ? Interpretation ?? Satisfactory for evaluation. ?? No endocervical cells seen. ?? Negative for intraepithelial lesion or malignancy. ?? Coccobacilli consistent with shift in vaginal rosanna. ? HPV mRNA E6/E7: ?NOT DETECTED ? This assay detects E6/E7 viral messenger RNA (mRNA) from 14 high-risk HPV types (16, 18, ?? 31, 33, 35, 39, 45, 51, 52, 56, 58, 59, 66, 68) ? HPV testing performed by [facility], [place], [place]. ??See reference laboratory ?? portion of the EMR for entire report. ?Clinical Information LMP: 05/25/2023 Previous PAP test: Unknown date/findings ? Material Received ?? ThinPrep-Vaginal/Cervical ----- ------- Signed (signature on file) Zandra Raya 08/14/23 1542 ? ----- ------- ? END OF REPORT ? us Judith Villalba CNM LAB CYTOLOGY ORDERABLES F inal Result [facility] [address] [place] [address] [phone] from Last 3 Months or Most Recently Relevant to Health Maintenance Insurance [facility] C3 HSN FULL Care Teams Director Digital Analytics Relationship Specialty Start Date End Date Liliana Narayanan MD [address] [place] [address] PCP - General Internal Medicine 11/04/22 Isac Gaytan FNP [address] [place] [address] Nurse Practitioner Family Medicine 01/05/23
--- OUTSIDE RECORDS SUMMARY | 2024-05-21 09:04 | XMS_ITS | Encounter Summary ---
Author Organization [employer] Address [address] [facility] [address] [place] [address] Care Team Providers Care Asbestos Wire Finisher Name Role Phone Liliana Narayanan MD Primary Care Pro vider Isac Gaytan Unavailable Unavailable Reason for Visit * Reason Onset Date Comments PT-1 10/06/2023 Encounter Details Date Type Department Care Team (Late st Contact Info) Description 10/06/2023 Telephone [facility] [address] [place], [place] [phone] Liliana Narayanan MD [address] [place], [place] [phone] PT-1 Social History Tobacco Use Types Packs/Day Years [...] before you got money to buy more: Never True 06/24/2023 Within the past 12 months,th e food you bought just didn't last and you didn't have enough money to get more: Never True 11/2023 Transportation Answer Date Recorded In the past 12 months, has l ack of transportation kept you from medical appts, meetings, work or from getting things needed for daily living? No 06/24/2023 Utilities Answer Date Recorded In the past [...] encounter Miscellaneous Notes * Telephone Encounter - Luther Kerns - 10/06/2023 1:08 PM EDT Patient calling requesting PT1 Home Address verified: Y/N: Yes Provider name or facility name: [facility] Facility Address: Escort needed: Y/N: No Do you have a wheelchair: Y/N: No If yes- Manual or electric: N/A Visits: Once a month documented in this encounter Plan of Treatment Upcoming Encounters Date Type Department Care Team (Late st Contact Info) Description 05/25/2024 11:15 AM EDT Office Visit [facility] [address] [place] [phone] Liliana Narayanan MD [address] [place] [phone] 07/19/2024 1:45 PM EDT Office Visit [facility] [address] [place] [phone] Judith Ingram CNM [address] [place] [phone] documented as of this encounter Visit Diagnoses Not on filedocumented in this encounter Additional Health Concerns Assessment Noted Time PHQ-9 Depression Total Score: 27 024 10:20 AM EDT documented as of this encounter Care Teams Asbestos Wire Finisher Relationship Specialty Start Date End Date Liliana Narayanan MD [address] [place] [address] PCP - General Internal Medicine 11/04/22 Isac Gaytan FNP [address] [place] [address] Nurse Practitioner Family Medicine 01/05/23 documented as of this encounter
== END 2024-05-21 09:01 | disposition home or self-care (01) ==
LOC: HO.HCS 08:33
PROVIDERS: PCP Student in an Organized Health Care Education/Training Program; Visit Provider Internal Medicine
DX: R07.2 Precordial pain (principal); R94.31 Abnormal electrocardiogram [ECG] [EKG]; I10 Essential (primary) hypertension; F17.200 Nicotine dependence, unspecified, uncomplicated
CPT/HCPCS: 93010; 99204

== ENCOUNTER → 2024-05-21 08:33 | Outpatient (BNVA) | payer MEDICAID, SELFPAY | PROVIDERS: PCP Student in an Organized Health Care Education/Training Program; Visit Provider Internal Medicine | DX: R07.2 Precordial pain (principal); R94.31 Abnormal electrocardiogram [ECG] [EKG]; I10 Essential (primary) hypertension; F17.210 Nicotine dependence, cigarettes, uncomplicated | CPT/HCPCS: 93005; 99202 ==

== ENCOUNTER → 2024-08-09 08:06 | Outpatient (REF) | payer MEDICAID, SELFPAY ==
--- OUTSIDE RECORDS SUMMARY | 2024-08-09 08:15 | XMS_ITS | Clinical Summary ---
Author Organization [employer] Address [address] [facility] [address] [place] [address] Care Team Providers Care Certified Genetic Counselor Name Role Phone Liliana Narayanan MD Primary Care Pro vider Isac Gaytan Unavailable Unavailable Allergies Active Allergy Reactions Criticality Noted Date Comments Gramineae Pollens Runny nose 09/10/2022 Medications * This document contains information received from the source organization and may not represent a complete record from that organization. cetirizine (ZyrTEC) 10 MG chewable tablet Chew 1 tablet at bed time. 03/24/19 22 Active cyclobenzaprin e (Flexeril) 5 MG tablet take 1 tablet by oral route 2 times daily as needed for muscle pain or spasm 08/27/19 22 Active albuterol (2.5 MG/3ML) 0.083% nebulizer solutionIndica tions:Moderate persistent asthma, unspecified whether complicated Take 3 mL by nebulization every 8 (eight) hours if needed for wheezing. 75 mL 09/11/19 23 Active budesonide-for moterol (Symbicort) 80-4.5 MCG/ACT inhalerIndicat ions:Moderate persistent asthma, unspecified whether complicated Inhale 2 puffs in the morning and at bedtime. Rinse mouth with water after use to reduce aftertaste and incidence of candidiasis. Do not swallow. 1 each 5 04/26/19 24 Active sertraline (Zoloft) 100 MG tabletIndicati ons:Severe recurrent major depression with psychotic features (CMS/HCC) Take 1 tablet (100 mg) by mouth in the morning. 90 tablet 04/26/19 24 Active albuterol 108 (90 Base) MCG/ACT inhaler Inhale 2 puffs every 4 (four) hours. 18 g 3 04/26/19 24 Active Diclofenac Sodium 1 % gel Apply 1 Application topically if needed each day (pain knee). 50 g 06/24/19 24 Active nicotine (Nicoderm CQ) 7 MG/24HR patch Place 1 patch on the skin 1 (one) time each day at the same time. 42 patch 09/27/19 24 Active nicotine polacrilex (Nicotine Mini) 2 MG lozenge Dissolve 1 lozenge (2 mg) in the mouth if needed for smoking cessation. 100 lozenge 09/27/19 24 Active QUEtiapine XR (SEROquel XR) 300 MG 24 hr tablet TAKE 1 TABLET BY MOUTH EVERYDAY AT BEDTIME 30 tablet 11/10/19 24 Active Gas Relief Extra Strength 125 MG chewable tablet CHEW 1 TABLET (125 MG) EVERY 6 (SIX) HOURS IF NEEDED FOR FLATULENCE FOR UP TO 10 DAYS. 30 tablet 01/09/20 24 Active lisinopril-hyd roCHLOROthiazi de 10-12.5 MG tablet TAKE 1 TABLET BY MOUTH EVERY DAY 90 tablet 07/13/19 25 Active lisinopril-hyd roCHLOROthiazi de 10-12.5 MG tablet TAKE 1 TABLET BY MOUTH EVERY DAY 90 tablet 04/04/19 25 025 Discontinued Active Problems Problem Noted Date Diagnosed Date [...] she/her/hers) with previous documented hx of Depression, MH services including OP Psychotherapy and psychopharmacology; who [...] in the past 12 months) therapist at [facility] Behavioral Health Integration Plan External OP psychiatry Referral Patient Self Plan Patient to utilize skills provided in intervention , Patient [facility] as needed, Comply with medication soloft [...] Encounters Date Type Department Care Team Description 07/24/2024 Telephone [facility] [address] [place] [phone] Nicole Villalba CNM No Show 07/23/[address] [phone] Nicole Villalba CNM Chart Prep 07/12/[address] [phone] Liliana Narayanan MD Appointment Confirmation (I spoke with the pt and I book the appointment on 09/18/24. ) 07/12/2024 Travel 07/12/[address] [address] Nila Sher MD 05/25/[address] [address] Liliana Narayanan MD 05/17/[address] [phone] Liliana Narayanan MD chart prep 05/14/2024 Patient Outreach [address] [address] Gómez Velazquez Care Coordination (CHW outreach for SDOH PT-1 and food needs-referral completed /) 05/14/2024 Patient Outreach [address] [address] Liliana Narayanan MD Pre-visit Planning (SDOH Screening positive and Tobacco screening positive) from Last 3 Months Immunizations Immunization Administration Dates Next Due Pfizer Covid-19 Vaccine [...] 68 09/27/2023 11:53 AM EDT Temperature 36.6 C (97.8 F) 09/27/2023 11:53 AM EDT Respiratory Rate 20 09/27/2023 11:53 AM EDT Oxygen Saturation 98% 09/27/2023 11:53 AM EDT Inhaled Oxygen Concentration - - Weight 81.7 kg (180 lb 3.2 oz) 09/27/2023 11:53 AM EDT Height 160 cm (5' 3 ) 09/27/2023 11:53 AM EDT Body Mass Index 31.92 09/27/2023 11:53 AM EDT Plan of Treatment Upcoming Encounters Date Type Department Care Team (Late st Contact Info) Description 09/18/2024 10:00 AM EDT Office Visit [facility] [address] [place], [place] [phone] Liliana Narayanan MD [address] [place], [place] [phone] Health Maintenance Due Date Last Done Comments CT Colonography 1972 Colonoscopy 1972 Colorectal Cancer Screening 1972 FIT DNA/Cologuard 1972 FIT 1972 FOBT 1972 HIV Screening 1972 Lipid Panel 1972 Sigmoidoscopy 1972 Disability Screening 1972 Alcohol/Substance Use Screening 1984 Family Planning (PISQ) 05/04/1987 Hepatitis C Screening 1990 Hepatitis B Vaccines (1 of 3 - 19+ 3-dose series) 05/04/1991 Mammogram 2012 Zoster Vaccines (1 of 2) 2022 COVID-19 Vaccine ( - 2023-2 5 season) 2023 06/24/2023 Depression Monitoring 10/27/2023 04/26/2023 , 04/26/2023 Tobacco Screening 09/26/2024 09/27/2023 Influenza Vaccine (Season Ended) 2024 SDOH Screening 05/14/2025 05/14/2024 Cervical Cancer Screening [...] patient's age to complete this topic Meningococcal B Vaccine Aged Out No l onger eligible based on patient's age to complete [...] HPV nRNA E6/E7 Not Detected Not Detected [facility] Comment:Methodology: Transcr iption-Mediated AmplificationThis assay detects E6/E7 viral messenger RNA (mRNA) from 14high-risk HPV types (16,18,31,33,35,39,45,51,52,56,58,59,66,68).Cervical sources are required for HPV testing.If a vaginal source from a patient who has had atotal hysterectomy with removal of cervix wassubmitted, please contact the testing laboratoryfor alternative testing options.For additional information, please refer tohttp://education.Afluenta/faq/RGN223j1(This link if provided for information/educational purposes only.)THIS TEST WAS PERFORMED AT:[facility] [place] [id number] REYES MD HPV mRNA E6/E7 [facility] HPV 16 RNA [facility] HPV 18/45 RNA [facility] 07/19/2023 10:5 8 AM EDT 07/27/2023 11:42 AM EDT Nicole Villalba CNM LAB CYTOLOGY ORDERABLES F inal Result [facility] [address] [place] [phone] * Pap Smear (07/19/2023 10:58 AM EDT) 07/19/2023 10:5 8 AM EDT 07/20/2023 9:15 AM EDT Narrative [facility] - 08/14/2023 3:42 PM EDT ----- ------- Name: Sidney Bellamy Age/Sex: 53/F : 1970 Unit#: [id number] Attend Dr: NICOLE VILLALBA CNM Re07/19/23 Status: DEP REF Location: HO.HHCLNP Disch: ----- ------- SPEC : [id number] RECD: 07/20/23 STATUS: ANNE-MARIE ARRIOLA NUM: [id number] KASIA: 07/19/23-[address]: NICOLE VILLALBA CNM ENTERED: 07/20/23-1017 SP TYPE: Pap Smr OTHR DR: ORDERED: Pap Smear Interpretation Satisfactory for evaluation. No endocervical cells seen. Negative for intraepithelial lesion or malignancy. Coccobacilli consistent with shift in vaginal rosanna. HPV mRNA E6/E7: NOT DETECTED This assay detects E6/E7 viral messenger RNA (mRNA) from 14 high-risk HPV types (16, 18, 31, 33, 35, 39, 45, 51, 52, 56, 58, 59, 66, 68) HPV testing performed by [facility], [place], [place]. See reference laboratory portion of the EMR for entire report. Clinical Information LMP: 05/25/2023 Previous PAP test: Unknown date/findings Material Received ThinPrep-Vaginal/Cervical ----- ------- Signed (signature on file) Zandra Raya 08/14/23 1542 ----- ------- END OF REPORT us Nicole Villalba [facility] LAB CYTOLOGY ORDERABLES F inal Result [facility] [address] [place] [address] [phone] from Last 3 Months or Most Recently Relevant to Health Maintenance Insurance [facility] C3 HSN FULL Care Teams Certified Genetic Counselor Relationship Specialty Start Date End Date Liliana Narayanan MD [address] [place] [address] PCP - General Internal Medicine 11/04/22 Isac Gaytan FNP [address] [place] [phone] Nurse Practitioner Family Medicine 01/05/23
--- NOTE | 2024-08-09 09:03 | CA_ITS ---
Transthoracic Echocardiogram Patient (Last, First, Middle): Sidney Bellamy, Gender: Female Date of : 1970 Age: 54 Procedure Date: 08/09/2024 Procedure Type: Transthoracic Echocardiogram Location: OP Height: 160.02 cm Weight: 83.01 kg BSA: 1.86 m2 Heart Rate: bpm BP: 118 / 80 mmHg Non Emergency Services Ambulance Driver: TO Referring MD: Terrell Cherry MD Symptoms: R07.2 - Precordial pain Study Quality: Adequate ECG Rhythm: Sinus Conclusions: - The left ventricular systolic function is normal. The calculated ejection fraction is 61% by biplane method. - No obvious valvular pathology seen on this study. Findings Left Ventricle Normal left ventricular cavity size. There is normal left ventricular wall thickness. The left ventricular systolic function is normal. The calculated ejection fraction is 61% by biplane method. There is no evidence of regional wall motion abnormalities. Diastolic function is normal for age. Right Ventricle Normal right ventricular cavity size and systolic function. Atria Both atria are normal in size. Aortic Valve There is a normal trileaflet aortic valve. There is mild calcification of the aortic valve. There is no aortic valve stenosis. There is no aortic valve regurgitation. Mitral Valve The mitral valve appears normal. There is no mitral valve regurgitation. There is no mitral valve stenosis. Pulmonic Valve The pulmonic valve is likely normal. Tricuspid Valve There is trace tricuspid valve regurgitation. There is no evidence of pulmonary hypertension. Great Vessels The asc aorta is normal in size. Venous The inferior vena cava is normal in size and collapses greater than 50% with inspiration. Pericardium/Pleural Widened pericardial space, unable to distinguish between adipose tissue and effusion. There is no evidence of pericardial effusion. Prior Study Comparison No prior study available for comparison. Recommendations, Care & Conclusions No obvious valvular pathology seen on this study. Measurements 2D Linear Measurements IVSd: 0.89 0.6-0.9/0.6-1.0 cm LVIDd: 4.73 3.9-5.3/4.2-5.9 cm LVIDd Index: 2.54 2.4-3.2/2.2-3.1 cm/m2 LVIDs: 3.18 2.0-3.6 cm LVPWd: 0.95 0.7-1.1 cm LA Diam: 3.40 2.7-3.8/3.0-4.0 cm LAIDs Index: 1.83 1.5-2.3 cm/m2 LV Mass: 185.02 67-162/88-224 g LV Mass Index: 99.47 43-95/49-115 g/m2 LVOT Diam: 2.10 3.0+(-)1.3 cm 2D Systolic Function EF 4C: 65.30 >55% EF 2C: 55.30 >55% EF BiP: 60.90 >55% Mitral Valve MV Pk E: 0.75 MV PK A: 0.52 MV Decel Time: 182.00 E/A: 1.40 E'Lateral: 9.46 E'Medial: 8.38 E/E' Med: 9.00 E/E' Lat: 8.00 PHT: 53.00 MVA PHT: 4.15 Decel Guadalupe: 4.14 Aortic Valve AoV Pk Chicho: 1.30 AoV Mn Chicho: 0.88 AoV VTI: 0.25 AoV Pk Grad: 7.00 Aov Mn Grad: 4.00 MARI Cont.VTI: 2.92 LVOT LVOT Pk Chicho: 1.17 LVOT Mn Chicho: 0.70 LVOT VTI: 0.21 LVOT Pk Grad: 5.00 LVOT Mn Grad: 2.00 LVOT Diam: 2.10 LVOT Area: 3.46 Diastolic Function MV Pk E: 0.75 MV Pk A: 0.52 E/A: 1.40 E'Medial: 8.38 E/E' Med: 9.00 E' Laterial: 9.46 E/E' Lat: 8.00 Right Ventricle TAPSE (mm): 24.40 TVS' Chicho: 12.50 Tricuspid Valve RA Press: 3.00 Great Vessels Aorta Sinus of Valsalva: 2.79 2.0-3.5 cm Ao Asc: 2.90 2.1-3.4 cm Updated in Other Vendor System with Status of Final Terrell Cherry MD electronically signed on 08/11/2024 12:16:04 PM with status of Final
== END ==
LOC: HO.CARD 08:06
PROVIDERS: PCP Student in an Organized Health Care Education/Training Program; Visit Provider Internal Medicine
DX: R07.2 Precordial pain (principal)
CPT/HCPCS: 93306

== ENCOUNTER → 2024-08-09 09:03 | Outpatient (BNV) | payer MEDICAID, SELFPAY | PROVIDERS: PCP Student in an Organized Health Care Education/Training Program; Visit Provider Internal Medicine | DX: I35.8 Other nonrheumatic aortic valve disorders (principal); R07.2 Precordial pain | CPT/HCPCS: 93306 ==

== ENCOUNTER → 2024-08-29 10:41 | Outpatient (REF) | payer MEDICAID, SELFPAY ==
--- NOTE | 2024-08-29 10:45 | CA_ITS ---
Acquisition Time: 2024-08-29 11:04:49 Total Exercise Time: 00:07:41 Test Indications: ABN EKG Medications: SEE H&P Protocol: MARKEL Max HR: 151 BPM 89% of Pred: 168 BPM Max BP: 166/64 mmHG Max Work Load: 9.5 METS Exercise stress test with exercise 7 mins 41 secs of Markel Protocol, achieving 83% MPHR, with reports of SOB, no chest pain, with isolated PACs with normotensive response to exercise. Without any EKG changes meeting criteria for ischemia. In recovery, breathing returned to basleine. Echo images obtained by tech at rest and post peak exercise. Definity contrast utilized. Test reviewed with Dr. Cherry. Referred By: Terrell Cherry Electronically Signed By: Alexis Tsang
--- OUTSIDE RECORDS SUMMARY | 2024-08-29 11:23 | XMS_ITS | Clinical Summary ---
Author Organization [employer] Address [address] [facility] 7t [place] [address] Care Team Providers Care All Source Intelligence Technician Name Role Phone Liliana Narayanan MD Primary [...] in the past 12 months) therapist at [facility] Behavioral Health Integration Plan External OP psychiatry Referral Patient Self Plan Patient to utilize skills provided in intervention , Patient to [facility] team as needed, Comply with [...] Type Department Care Team Description 07/24/2024 Telephone [facility] [address] [place] [address] Judith Villalba CNM No Show 07/23/2024 Telephone [facility] [address] [place] [phone] Judith Villalba CNM Chart Prep 07/12/2024 Telephone [facility] [address] [place] [address] Liliana Narayanan MD Appointment Confirmation (I spoke with the pt and I book the appointment on 09/18/24. ) 07/12/2024 Travel 07/12/2024 Refill [facility] [address] [place] [address] Nila Sher MD from Last 3 Months Immunizations Immunization Administration [...] Description 09/18/2024 10:00 AM EDT Office Visit [facility] [address] [place] [phone] Liliana Narayanan MD [address] [place] [address] Health Maintenance Due Date Last Done Comments [...] (2 - 2023-2 5 season) 2023 06/24/2023 Depression Monitoring 10/27/2023 04/26/2023 , 04/26/2023 Tobacco Screening 09/26/2024 09/27/2023 Influenza Vaccine (#1) 2024 SDOH Screening 05/14/2025 05/14/2024 Cervical Cancer [...] HPV nRNA E6/E7 Not Detected Not Detected [facility] Comment:Methodology: Transcr iption-Mediated AmplificationThis assay detects E6/E7 viral messenger RNA (mRNA) from 14high-risk HPV types (16,18,31,33,35,39,45,51,52,56,58,59,66,68).Cervical sources are required for HPV testing.If a vaginal source from a patient who has had atotal hysterectomy with removal of cervix wassubmitted, please contact the testing laboratoryfor alternative testing options.For additional information, please refer tohttp://education.BetUknow/faq/ARE507b4(This link if provided for information/educational purposes only.)THIS TEST WAS PERFORMED AT:[employer] [place] [id number] REYES MD HPV mRNA E6/E7 [facility] HPV 16 RNA [facility] HPV 18/45 RNA [facility] 07/19/2023 10:5 8 AM EDT 07/27/2023 11:42 AM EDT Judith Villalba [facility] LAB CYTOLOGY ORDERABLES F inal Result [facility] [address] [place] [phone] * Pap Smear (07/19/2023 10:58 AM EDT) 07/19/2023 10:5 8 AM EDT 07/20/2023 9:15 AM EDT Narrative [facility] - 08/14/2023 3:42 PM EDT ----- ------- Name: Sidney Bellamy Age/Sex: 53/F : 1970 Unit#: [id number] Attend Dr: JUDITH VILLALBA CNM Re07/19/23 Status: DEP REF Location: [facility] Disch: ----- ------- SPEC : [id number] RECD: 07/20/23 STATUS: ANNE-MARIE ARRIOLA NUM: [id number] KASIA: 07/19/23-1058 [facility] DR: JUDITH VILLALBA CNM ENTERED: 07/20/23-1017 SP TYPE: Pap Smr OTHR : ORDERED: Pap Smear Interpretation Satisfactory for evaluation. No endocervical cells seen. Negative for intraepithelial lesion or malignancy. Coccobacilli consistent with shift in vaginal rosanna. HPV mRNA E6/E7: NOT DETECTED This assay detects E6/E7 viral messenger RNA (mRNA) from 14 high-risk HPV types (16, 18, 31, 33, 35, 39, 45, 51, 52, 56, 58, 59, 66, 68) HPV testing performed by [facility], [place], [place]. See reference laboratory portion of the EMR for entire report. Clinical Information LMP: 05/25/2023 Previous PAP test: Unknown date/findings Material Received ThinPrep-Vaginal/Cervical ----- ------- Signed (signature on file) Zandra Raya 08/14/23 1542 ----- ------- END OF REPORT us Judith THURMAN LAB CYTOLOGY ORDERABLES F inal Result [facility] [address] [place] [address] [phone] from Last 3 Months or Most Recently Relevant to Health Maintenance Insurance [facility] [address] C3 HSN FULL Care Teams All Source Intelligence Technician Relationship Specialty Start Date End Date Liliana Narayanan MD [address] [place] [address] PCP - General Internal Medicine 11/04/22 Isac Gaytan FNP [address] [place] [phone] Nurse Practitioner Family Medicine 01/05/23
== END ==
LOC: HO.CARD 10:41
PROVIDERS: PCP Student in an Organized Health Care Education/Training Program; Visit Provider Internal Medicine
DX: R07.2 Precordial pain (principal)
CPT/HCPCS: 93350; Q9957

== ENCOUNTER → 2024-08-29 10:45 | Outpatient (BNV) | payer MEDICAID, SELFPAY | PROVIDERS: PCP Student in an Organized Health Care Education/Training Program | DX: R06.02 Shortness of breath (principal); R94.31 Abnormal electrocardiogram [ECG] [EKG]; I49.1 Atrial premature depolarization; I49.3 Ventricular premature depolarization | CPT/HCPCS: 93016; 93018; 93350; 93352 ==